=== PATIENT | female | born 1970 | race Hispanic/Latino ===

== ENCOUNTER 2020-02-27 07:06 | Outpatient (CLI) | payer BC ==
[2020-02-27 11:53] LABS: Hemoglobin 14.5 g/dL (12.0-16.0); Mean Corpuscular HGB CONC 34.4 G/DL (32.0-36.0); Mean Corpuscular Hemoglobin 32.8 PG (27.0-33.0); Mean Corpuscular Volume 95.5 fl (80.0-100.0); Mean Platelet Volume 9.9 fl (7.4-10.4); Platelet Count 280 10x3/uL (130-400); RBC Distribution Width 12.9 % (11.5-14.5); Red Blood Cell (RBC) Count 4.42 10x6/uL (3.90-5.20); White Blood Cell (WBC) Count 7.1 10x3/uL (4.5-11.0)
[2020-02-27 11:55] LABS: Bilirubin Neg (Negative); Blood, Urine 50 (Negative); Glucose, Urine (Dipstick) Normal (Negative); Ketone, Urine Negative (Negative); Leukocyte 25 (Negative); Nitrite Negative (Negative); Protein, Urine (Dipstick) 30 mg/dl (Neg-Trace); Urobilinogen Normal mg/dL (Less than 2); pH, Urine 6.5 (5.0-9.0)
[2020-02-27 12:16] LABS: Clarity Slightly Cloudy (Clear)
[2020-02-27 12:33] LABS: Bacteria/HPF 2+ HPF (None Seen)
[2020-02-27 12:35] LABS: Epithelial Cast 0-3 LPF (None Seen); Mucous/LPF 1+ LPF (<2+)
[2020-02-28 05:59] LABS: SARS-CoV-2 MS2 Positive; SARS-CoV-2 N Gene Negative; SARS-CoV-2 S Gene Negative; SARS-CoV-2 by NAA Not Detected (NotDetected); SARS-CoV-2 orf1ab Negative
== END 2020-02-27 07:07 | disposition home or self-care (01) ==
LOC: LABBT 07:06
PROVIDERS: ATTEND Orthopaedic Surgery
DX: Z01.812 Encounter for preprocedural laboratory examination (principal); Z20.828 Contact with and (suspected) exposure to other viral communicable diseases; S82.842A Displaced bimalleolar fracture of left lower leg, initial encounter for closed fracture
CPT/HCPCS: 81001; 85027; 87635; U0003

== ENCOUNTER 2020-02-29 08:34 | Day surgery (SDC) | payer BC ==
[2020-02-28 11:30] VITALS: BMI 31.6
[2020-02-29] MEDS ORDERED: Fentanyl 100 MCG/2 ML VIAL ONE ×3 (09:46→12:42)
[2020-02-29] MEDS ORDERED: Midazolam HCl 2 mg/2 ml Vial ONE (09:46)
[2020-02-29] MEDS ORDERED: PROPOFOL 200 MG/20 ML VIAL ONE (10:08)
[2020-02-29] MEDS ORDERED: Metoclopramide HCl 10 MG/2 ML VIAL ONE (10:08)
[2020-02-29] MEDS ORDERED: Ondansetron PF 4 MG/2 ML Vial ONE (10:08)
[2020-02-29] MEDS ORDERED: Lidocaine 1% PF 5 ML VIAL ONE (10:08)
[2020-02-29] MEDS ORDERED: Dexamethasone 20 MG/5 ML VIAL ONE (10:08)
[2020-02-29] MEDS ORDERED: Ketorolac Tromethamine 30 MG/ML VIAL ONE (10:08)
[2020-02-29] MEDS ORDERED: ePHEDrine 50 MG/ML VIAL ONE (10:08)
[2020-02-29] MEDS ORDERED: Ondansetron PF 4 MG/2 ML Vial IVP PRN (10:45)
[2020-02-29] MEDS ORDERED: Ropivacaine 0.2% 550 ML 550 ML NERVE BLCK SCH (10:45)
[2020-02-29] MEDS ORDERED: Promethazine HCl 25 MG/ML VIAL IM PRN (10:45)
[2020-02-29] MEDS ORDERED: HYDROcodone/Acetaminophen 10/325 mg Tablet PO PRN ×2 (10:45)
[2020-02-29] MEDS ORDERED: Zolpidem Tartrate 5 MG TAB PO PRN (10:45)
[2020-02-29] MEDS ORDERED: traMADol HCl 50 MG TAB PO PRN ×2 (10:45)
--- NOTE | 2020-02-29 12:37 | RAD ---
Exam:Exam: Intraoperative fluoroscopy HISTORY: ORIF left ankle COMPARISON: None Exposure: 11.1 seconds, 0.28 mGy FINDINGS: 5 intraoperative views demonstrate internal fixation of a bimalleolar fracture. Near anatom ic alignment. IMPRESSION: Intraoperative fluoroscopy as above
--- NOTE | 2020-02-29 13:42 | OP ---
DATE OF PROCEDURE: 02/29/2020 This is Bryce Wu PA-C dictating a report for Kvng Cortes MD. PREOPERATIVE DIAGNOSIS: Left ankle unstable bimalleolar ankle fracture with syndesmosis sprain. POSTOPERATIVE DIAGNOSIS: Left ankle unstable bimalleolar ankle fracture with syndesmosis sprain. PROCEDURE PERFORMED: Open reduction and internal fixation of bimalleolar ankle fracture with syndesmosis repair. WOMEN SPECIALIST: Bryce Wu PA-C. The co-surgeon/economic research assistant was present throughout the entirety of the case and assisted with positioning, exposure, providing tissue retraction, bleeding, and tissue manipulation to achieve required reduction and fixation throughout the whole case as well as provided closure with the surgeon and splint application. TOURNIQUET TIME: 35 minutes. ESTIMATED BLOOD LOSS: Less than 50. ANESTHESIA: General via LMA augmented with indwelling peripheral nerve block. COMPONENTS USED: Synthes one-third tubular limited contact plate locking as well as [employer] TightRope construct and two medial malleolar partially-threaded cancellous screws. FINDINGS: Bishop B two-part lateral malleolar fracture as well as a medial malleolar fracture with interposition of sheath and ligamentous structures and instability at the syndesmosis with stress views. DRAINS: None. SPECIMENS: None. COMPLICATIONS: None. COUNTS: Correct. INDICATION FOR SURGERY: Dayami is a 49-year-old female, who fell, had a ground level fall approximately 6 days ago. She was present in the emergency room and plain radiographs demonstrated a bimalleolar ankle fracture. She was seen in clinic and elected to proceed with open reduction and internal fixation as definitive treatment of this unstable ankle. PROCEDURE IN DETAIL: After informed consent was obtained in the preoperative holding area, the patient received preoperative antibiotics through intravenous infusion. She was then taken to the operative suite where general anesthesia was induced. LMA was placed and secured and she was positioned appropriately in the supine position. The left lower extremity was then prepped and draped in usual sterile fashion. A well-padded tourniquet was placed over the left proximal thigh. Prior to exsanguination, a multidisciplinary time-out was called. After completion of the time-out, the incision was made longitudinally directly over by palpation extending from the tip of the lateral malleolus proximally, approximately 3 fingerbreadths above the top of the fibular fracture as noted on fluoroscopy. Deep dissection was carried out, and the periosteum was then divided sharply and periosteal elevator was used to create a plane and identify the fracture. Copious irrigation was used to clean out all fracture fragments. A preliminary reduction clamp was placed with good anatomic fixation. A front to back interfragmentary fully-threaded cortical screw was placed. Reduction clamp was removed and we then turned our attention to lateral plating with one-third tubular 7-hole plate. We had 4 screws in top, 2 in the bottom, and a TightRope construct was used at the 3rd from the bottom hole just over the plafond. We had excellent fixation. After placing the TightRope construct through and through both fibula and tibia. Stress views failed to reveal any slack after placement of this construct. We then turned our attention to medial malleolar fixation. A longitudinal incision was made directly over the anterior lip of the medial malleolus by palpation. Saphenous nerve was then identified and retracted with the vein. The fracture sheath was then sharply resected from the fracture itself. Inflammatory reduction clamp was placed over the medial malleolus with anatomic fixation. Two cannulated 0.062 K-wires were placed and these were overdrilled distally and two 32 mm partially-threaded cancellous 4.0 screws were placed with good fixation. Postoperative radiographs were obtained with the fluoroscopy showing near anatomic reduction both in the AP and lateral planes. Good screw lengths were also identified. Both wounds were copiously irrigated with normal saline. Primary closure was accomplished with 0 interrupted [id number] Vicryl stitches. The subcutaneous layer was closed with 2-0 interrupted Vicryl stitches. Stainless steel natalia were used to reapproximate the skin. Sterile dressing was applied and a posterior splint was then placed and allowed to cure. The procedure was terminated without any complication. The LMA was removed in the operative suite. The patient was taken to the recovery room in stable condition. Job ID: [id number]
== END 2020-02-29 14:20 | disposition home or self-care (01) ==
LOC: SDC 08:34
PROVIDERS: ATTEND Orthopaedic Surgery
PROC: 3E0T3BZ Introduction of Anesthetic Agent into Peripheral Nerves and Plexi, Percutaneous Approach (ICD-10-PCS; principal; 2020-02-29)
PROC: 0QSK04Z Reposition Left Fibula with Internal Fixation Device, Open Approach (ICD-10-PCS; principal; 2020-02-29)
PROC: 0QSH04Z Reposition Left Tibia with Internal Fixation Device, Open Approach (ICD-10-PCS; principal; 2020-02-29)
DX: S82.842A Displaced bimalleolar fracture of left lower leg, initial encounter for closed fracture (principal); G89.18 Other acute postprocedural pain; E66.9 Obesity, unspecified; Z68.31 Body mass index [BMI] 31.0-31.9, adult; Z88.6 Allergy status to analgesic agent; W19.XXXA Unspecified fall, initial encounter; Y93.01 Activity, walking, marching and hiking
CPT/HCPCS: 76000; A4306; C1713; C1769; J0690; J1100; J1885; J2250; J2405; J2704; J2765; J2795; J3010; J3490

== ENCOUNTER 2023-03-09 07:33 | Outpatient (CLI) | payer BC | END 2023-03-09 07:34 | disposition home or self-care (01) | LOC: BICULT 07:33 | PROVIDERS: ATTEND Family Medicine | DX: R10.11 Right upper quadrant pain (principal); K76.89 Other specified diseases of liver | CPT/HCPCS: 76705 ==